=== PATIENT | female | born 1955 | race Caucasian/White ===

== ENCOUNTER 2019-04-02 06:54 | Day surgery (SDC) | payer BC ==
[~2019-04-02 06:54] MED LIST: Lactated Ringers 1,000 ML IV SCH; Sodium Chloride 0.9% 10 ML Syringe FLUSH PRN
[2019-04-02] MEDS ORDERED: Propofol 200 MG/20 ML SDV IV ONE (06:55)
[2019-04-02] MEDS ORDERED: Lidocaine 2% 5 ML SDV INJECT ONE (06:55)
[2019-04-02] MEDS ORDERED: Lactated Ringers 1,000 ML IV SCH (07:30)
[2019-04-02] MEDS ORDERED: Sodium Chloride 0.9% 10 ML Syringe FLUSH PRN (07:30)
--- NOTE | 2019-04-02 08:23 | PCM.OPNOTE ---
- General Post-Op/Procedure Note Date of Surgery/Procedure: 04/02/19 Operative Procedure(s): c scope with biopsy Findings: descending colon polyp Pre Op Diagnosis: screening Post-Op Diagnosis: descending colon polyp Anesthesia Technique: MAC Primary Surgeon: Delon Beatty Anesthesia Provider: Nazia Ibarra Pathology: descending colon polyp Complications: None Condition: Good Free Text/Narrative:: see dictation
--- NOTE | 2019-04-02 12:12 | OR ---
DATE OF OPERATION: 04/02/2019 SURGEON: Delon Beatty MD PROCEDURE PERFORMED: Colonoscopy with cold loop snare biopsy. PREOPERATIVE DIAGNOSIS: Need for screening C-scope. POSTOPERATIVE DIAGNOSIS: Polyp, descending colon. INDICATIONS FOR PROCEDURE: This is a 63-year-old white female, who presents for screening colonoscopy. DESCRIPTION OF PROCEDURE: After an excellent IV sedation was administered, digital rectal exam was performed. No marked abnormality was noted. Flexible colonoscope inserted, advanced to the cecum. The prep was excellent. The following findings were noted: Ascending colon, unremarkable. Transverse colon, unremarkable. Descending colon, a small polyp, biopsied with cold loop snare and sent for permanent. Sigmoid and rectum, unremarkable. The patient tolerated the procedure well, was taken to recovery in good condition. Results by letter. /[id number] /DOREEN
== END 2019-04-02 09:00 | disposition home or self-care (01) ==
LOC: FB.SDS 06:54
PROVIDERS: ATTEND Surgery
DX: Z12.11 Encounter for screening for malignant neoplasm of colon (principal); D12.4 Benign neoplasm of descending colon; I10 Essential (primary) hypertension; E78.5 Hyperlipidemia, unspecified; Z79.899 Other long term (current) drug therapy; Z91.09 Other allergy status, other than to drugs and biological substances
CPT/HCPCS: 45385; 88305; J2001; J2704; J7120

== ENCOUNTER 2024-01-02 08:33 | Day surgery (SDC) | payer MEDICARE, OTHER ==
[2024-01-02] MEDS ORDERED: Lidocaine 2% 100 MG/5 ML Syringe IVPUSH ONE (08:34)
[2024-01-02] MEDS ORDERED: Propofol 200 MG/20 ML SDV IV ONE (08:34)
[2024-01-02] MEDS ORDERED: Sodium Chloride 0.9% 10 ML Syringe FLUSH PRN (08:45)
[2024-01-02] MEDS: Lactated Ringers 1,000 ML IV SCH (10:19)
[2024-01-02] MEDS: Simethicone Drops 40 MG/0.6 ML 30 ML Bottle ONE (11:50)
== END 2024-01-02 12:50 | disposition home or self-care (01) ==
LOC: FB.SDS 08:33
PROVIDERS: ATTEND Surgery
DX: K29.80 Duodenitis without bleeding (principal); K31.9 Disease of stomach and duodenum, unspecified; K21.00 Gastro-esophageal reflux disease with esophagitis, without bleeding; K44.9 Diaphragmatic hernia without obstruction or gangrene; I10 Essential (primary) hypertension; E66.9 Obesity, unspecified; G47.30 Sleep apnea, unspecified; Z80.0 Family history of malignant neoplasm of digestive organs; Z79.899 Other long term (current) drug therapy; Z68.38 Body mass index [BMI] 38.0-38.9, adult
CPT/HCPCS: 00731; 43239; 88305; 88342; A9270; J2704; J7120